=== PATIENT | male | born 1935 | race Caucasian/White ===

== ENCOUNTER 2021-09-08 13:06 | Observation (INO) ==
[2021-09-08] MEDS ORDERED: Naloxone 0.4 MG/ML INJ IVP PRN (14:55)
[2021-09-08] MEDS ORDERED: MOM Conc 10 ML UD.LIQ PO PRN (14:55)
[2021-09-08] MEDS ORDERED: Ondansetron 4 MG/2 ML VIAL IVP PRN (14:55)
[2021-09-08] MEDS ORDERED: Melatonin 3 MG TABLET PO PRN (14:55)
[2021-09-08] MEDS ORDERED: Ibuprofen 400 MG TABLET PO PRN (14:55)
[2021-09-08] MEDS ORDERED: Ondansetron ODT 4 MG TAB.RAPDIS SL PRN (14:55)
[2021-09-08] MEDS ORDERED: Mag Hydrox/Al Hydrox/Simeth 30 ML UDC PO PRN (14:55)
[2021-09-08] MEDS ORDERED: Acetaminophen 325 MG TABLET PO PRN (14:55)
[2021-09-08 15:30] LABS: Basophils % 0.4 %; Eosinophils # 0.5 K/mcL (0.0-0.6); Eosinophils % 4.3 %; Hematocrit 32.2 % (37.5-50.1); Hemoglobin 10.3 g/dL (12.9-16.9); Immature Granulocytes % 0.4 % (0-4); Lymphocytes # 1.3 K/mcL (0.6-4.6); Mean Corpuscular Hemoglobin 31.1 pg (28.0-33.3); Mean Corpuscular Volume 97.3 fL (83.0-100.0); Mean Platelet Volume 9.3 fL (9.4-12.4); Monocytes # 0.7 K/mcL (0.0-1.3); Monocytes % 6.1 %; Neutrophils # 8.6 K/mcL (1.6-8.9); Platelet Count 262 K/mcL (140-400); Red Blood Count 3.31 M/mcL (4.19-5.50); Red Cell Distribution Width 16.3 % (11.5-14.5); Segmented Neutrophils % 76.8 %; White Blood Count 11.2 K/mcL (4.3-11.1)
[2021-09-08 15:45] LABS: Albumin 3.6 g/dL (3.5-5.7); Albumin/Globulin Ratio 1.1 (1.1-2.2); Bilirubin,Total 0.4 mg/dL (0.3-1.0); Globulin 3.2 g/dL (2.4-3.5); Magnesium 1.9 mg/dL (1.6-2.6); Phosphorous 3.2 mg/dL (2.7-4.5); Total Protein 6.8 g/dL (6.4-8.9)
[2021-09-08 18:28] LABS: Bilirubin,Urine Negative (Negative); Blood,Urine Trace-lysed (Negative); Clarity,Urine Clear (Clear); Color,Urine Yellow (Yellow); Glucose,Urine (UA) Normal (Normal); Ketones,Urine Negative (Negative); Leukocyte Esterase,Urine Moderate (Negative); Nitrite,Urine Positive (Negative); PH,Urine 6.5 pH Units (5.0-8.0); Protein,Urine 30 mg/dL (Neg-Trace); Urobilinogen,Urine Normal (Normal)
[2021-09-08] MEDS: Doxycycline 100 MG in 0.9 % Sodium Chloride Mini Bag 100 ML IVPB SCH (18:35)
[2021-09-08 18:45] LABS: Bacteria,Urine Moderate per hpf (None-Few); Squamous Epithelial Cell,Urine Few per hpf (None-Few); WBC,Urine 30-50 per hpf (0-3)
[2021-09-09] MEDS: *HR* Enoxaparin 30 MG/0.3 ML SYRINGE SQ SCH (05:13)
[2021-09-09] MEDS: Doxycycline 100 MG in 0.9 % Sodium Chloride Mini Bag 100 ML IVPB SCH ×2 (05:13→17:02)
[2021-09-09 06:05] LABS: Hematocrit 33.1 % (37.5-50.1); Hemoglobin 10.4 g/dL (12.9-16.9); Mean Corpuscular HGB Conc 31.4 g/dL (31.6-35.5); Mean Corpuscular Hemoglobin 30.9 pg (28.0-33.3); Mean Corpuscular Volume 98.2 fL (83.0-100.0); Mean Platelet Volume 9.7 fL (9.4-12.4); Platelet Count 251 K/mcL (140-400); Red Blood Count 3.37 M/mcL (4.19-5.50); Red Cell Distribution Width 16.1 % (11.5-14.5); White Blood Count 9.7 K/mcL (4.3-11.1)
[2021-09-09 09:14] LABS: Calcium 8.8 mg/dL (8.6-10.3); Magnesium 1.8 mg/dL (1.6-2.6); Potassium 4.3 mEq/L (3.5-5.1)
[2021-09-09] MEDS: cefTRIAXone 1,000 MG in 0.9 % Sodium Chloride 10 ML IVP SCH (11:41)
[2021-09-10] MEDS: *HR* Enoxaparin 30 MG/0.3 ML SYRINGE SQ SCH (05:24)
[2021-09-10] MEDS: Doxycycline 100 MG in 0.9 % Sodium Chloride Mini Bag 100 ML IVPB SCH (05:25)
[2021-09-10 07:39] VITALS: RESP 17
[2021-09-10] MEDS: cefTRIAXone 1,000 MG in 0.9 % Sodium Chloride 10 ML IVP SCH (11:08)
[2021-09-10 12:09] VITALS: BP 171/87; PULSE 69; TEMP 98.1; O2SAT 97
== END 2021-09-10 13:35 | disposition home health service (06) ==
LOC: INPGRE
PROVIDERS: ADMIT Family Medicine; ATTEND Family Medicine